=== PATIENT | female | born 2000 | race Two or more races ===

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

== ENCOUNTER 2023-01-20 00:43 | Emergency (ER) | payer OTHER ==
[~2023-01-20] VITALS: Ht 165.1 cm; Wt 57.6 kg
[2023-01-20] MEDS ORDERED: ACETAMINOPHEN650 M2 PO (07:36)
[2023-01-20] MEDS ORDERED: DUI500 PO (07:37)
== END 2023-01-20 09:54 | disposition home or self-care (01) ==
LOC: ER 00:43
DX: O20.8 Other hemorrhage in early pregnancy (principal); Z3A.01 Less than 8 weeks gestation of pregnancy; R10.2 Pelvic and perineal pain

== ENCOUNTER 2023-02-05 14:12 | Inpatient (IN) | payer OTHER ==
[~2023-02-05] VITALS: Ht 165.1 cm; Wt 54.4 kg
[~2023-02-05 14:12] MED LIST: ACETAMINOPHEN650 M2 PO; DUI500 PO
== END 2023-02-09 13:11 | disposition home or self-care (01) | DRG 833 ==
LOC: OB/GYN 14:12
PROVIDERS: ADMIT Obstetrics & Gynecology; ATTEND Obstetrics & Gynecology
PROC: 4A1HXCZ Monitoring of Products of Conception, Cardiac Rate, External Approach (ICD-10-PCS; principal; 2023-02-05)
DX: O21.0 Mild hyperemesis gravidarum (principal); Z3A.01 Less than 8 weeks gestation of pregnancy; Z20.822 Contact with and (suspected) exposure to COVID-19

== ENCOUNTER 2023-04-11 10:10 | Outpatient (CLI) | payer OTHER | END 2023-04-11 12:50 | disposition home or self-care (01) | LOC: PRENATAL 10:10 | PROVIDERS: ATTEND Obstetrics & Gynecology Maternal & Fetal Medicine | DX: O26.849 Uterine size-date discrepancy, unspecified trimester (principal); Z36.0 Encounter for antenatal screening for chromosomal anomalies; Z14.8 Genetic carrier of other disease; Z3A.16 16 weeks gestation of pregnancy ==

== ENCOUNTER 2023-05-15 12:30 | Outpatient (CLI) | payer OTHER | END 2023-05-15 12:31 | disposition home or self-care (01) | LOC: PRENATAL 12:30 | PROVIDERS: ATTEND Obstetrics & Gynecology Maternal & Fetal Medicine | DX: O35.3XX0 Maternal care for (suspected) damage to fetus from viral disease in mother, not applicable or unspecified (principal); O44.00 Complete placenta previa NOS or without hemorrhage, unspecified trimester; Z3A.21 21 weeks gestation of pregnancy ==

== ENCOUNTER 2023-07-11 19:59 | Inpatient (IN) | payer OTHER ==
[~2023-07-11] VITALS: Ht 165.1 cm; Wt 1.4 kg
[2023-07-11 22:04] LABS: HEMATOCRIT 30.5 % (36.0-45.00); HEMOGLOBIN 9.9 g/dL (12.0-15.00); MEAN CELL VOLUME 95.9 fL (80.00-100.00); MEAN CORPUSCULAR HEMOGLOBIN 31.2 pg (27.00-32.0); MEAN CORPUSCULAR HGB CONC 32.6 g/dl (32.0-36.0); PLATELET COUNT 272 K/uL (150-450); RED BLOOD COUNT 3.18 M/uL (4.00-6.00); RED CELL DISTRIBUTION WIDTH 14.9 % (11.5-14.5)
[2023-07-11 22:10] LABS: URINE APPEARANCE Clear; URINE BILIRRUBIN Negative (NEGATIVE); URINE BLOOD Large; URINE COLOR Yellow; URINE GLUCOSE Negative (NEGATIVE); URINE LEUKOCYTE Trace; URINE NITRATE Negative; URINE PROTEIN Negative (NEGATIVE); URINE UROBILINOGEN 0.2 E.U./dl
[2023-07-11 22:11] LABS: URINE BACTERIA 302.3 uL (0.0-1933); URINE EPITHELIAL CELLS 9.4 uL (0.0-38.8); URINE RBC 21.8 uL (0.0-20.8); URINE WBC 4.4 uL (0.0-23.2)
[2023-07-11 22:27] LABS: INR 0.95; PARTIAL THROMBOPLASTIN TIME 24.6 SECONDS (22.0-34.0)
[2023-07-11 22:31] LABS: ALBUMIN 3.1 gm/dL (3.4-5.0); BILIRUBIN TOTAL 0.52 mg/dL (0.3-1.2); CALCIUM 9.1 mg/dL (8.5-10.1); CREATININE SERUM 0.59 mg/dL (0.55-1.02); GFR 127.46; GLOBULINA 4.9 G/DL (2.4-3.5); POTASSIUM 3.99 mEq/L (3.5-5.1)
[2023-07-12 07:49] LABS: HEMATOCRIT 29.9 % (36.0-45.00); MEAN CELL VOLUME 96.5 fL (80.00-100.00); PLATELET COUNT 282 K/uL (150-450); RED BLOOD COUNT 3.09 M/uL (4.00-6.00); RED CELL DISTRIBUTION WIDTH 14.2 % (11.5-14.5)
[2023-07-12 08:28] LABS: HEMOGLOBIN 9.8 g/dL (12.0-15.00); MEAN CORPUSCULAR HEMOGLOBIN 31.7 pg (27.00-32.0)
[2023-07-12] MEDS ORDERED: PRENATAL + DHA1 EAC1 (11:30)
== END 2023-07-13 15:36 | disposition home or self-care (01) | DRG 807 ==
LOC: LDR 19:59 → OB/GYN 19:59
PROVIDERS: ADMIT Obstetrics & Gynecology; ATTEND Obstetrics & Gynecology
PROC: 10E0XZZ Delivery of Products of Conception, External Approach (ICD-10-PCS; principal; 2023-07-11)
PROC: 4A1HXCZ Monitoring of Products of Conception, Cardiac Rate, External Approach (ICD-10-PCS; 2023-07-11)
DX: O60.14X0 Preterm labor third trimester with preterm delivery third trimester, not applicable or unspecified (principal); Z37.0 Single live birth; Z3A.29 29 weeks gestation of pregnancy; Z20.822 Contact with and (suspected) exposure to COVID-19

== ENCOUNTER 2023-08-29 06:01 | Emergency (ER) | payer OTHER ==
[~2023-08-29] VITALS: Ht 165.1 cm; Wt 60.8 kg
[~2023-08-29 06:01] MED LIST changes: +PRENATAL + DHA1 EAC1
[2023-08-29 09:27] LABS: HEMATOCRIT 31.6 % (36.0-45.00); HEMOGLOBIN 10.6 g/dL (12.0-15.00); MEAN CELL VOLUME 95.1 fL (80.00-100.00); MEAN CORPUSCULAR HEMOGLOBIN 31.8 pg (27.00-32.0); MEAN CORPUSCULAR HGB CONC 33.4 g/dl (32.0-36.0); PLATELET COUNT 247 K/uL (150-450); RED BLOOD COUNT 3.32 M/uL (4.00-6.00); RED CELL DISTRIBUTION WIDTH 15.2 % (11.5-14.5)
[2023-08-29] MEDS ORDERED: VISTARIL25 MG PO (09:52)
[2023-08-29 10:10] LABS: ALBUMIN 3.6 gm/dL (3.4-5.0); BILIRUBIN TOTAL 0.18 mg/dL (0.3-1.2); CALCIUM 9.1 mg/dL (8.5-10.1); CREATININE SERUM 0.88 mg/dL (0.55-1.02); GFR 79.63; GLOBULINA 4.3 G/DL (2.4-3.5); POTASSIUM 4.48 mEq/L (3.5-5.1); TOTAL PROTEIN 7.9 gm/dL (6.4-8.2)
== END 2023-08-29 10:56 | disposition home or self-care (01) ==
LOC: ER 06:01
PROVIDERS: General Practice
DX: R06.02 Shortness of breath (principal)